=== PATIENT | male | born 1965 | race African-American/Black ===

== ENCOUNTER 2020-05-16 16:46 | Emergency (ER) | payer OTHER ==
[~2020-05-16] VITALS: Ht 180.3 cm; Wt 115.9 kg
[2020-05-16 16:50] VITALS: BP 138/74
== END 2020-05-16 19:45 | disposition left against medical advice (07) ==
LOC: EMS 16:46
DX: R51.9 Headache, unspecified (principal); Z53.21 Procedure and treatment not carried out due to patient leaving prior to being seen by health care provider

== ENCOUNTER 2020-07-22 17:58 | Inpatient (IN) | payer OTHER ==
[~2020-07-22] VITALS: Ht 180.3 cm; Wt 102.2 kg
[2020-07-22] MEDS ORDERED: 0.9% SODIUM CHLORIDE 10 ML SYRINGE IVP PRN ×2 (19:00→21:30)
[2020-07-22 20:23] LABS: BASOPHILS % (AUTO) 0.9 % (0.0-2.0); EOSINOPHILS % (AUTO) 1.1 % (1.0-6.0); HEMATOCRIT 41.7 % (41-53); HEMOGLOBIN 13.9 g/dL (13.5-17.5); LYMPHOCYTES # (AUTO) 1.7 K/uL (1.0-4.8); LYMPHOCYTES % (AUTO) 17.6 % (22.0-44.0); MEAN CORPUSCULAR HEMOGLOBIN 29.6 pg (26.0-34.0); MEAN CORPUSCULAR HGB CONC 33.4 G/dL (31.0-37.0); MEAN CORPUSCULAR VOLUME 89 fL (80-100); MONOCYTES # (AUTO) 0.9 K/uL (0.1-1.0); MONOCYTES % (AUTO) 9.7 % (2.0-9.0); NEUTROPHILS # (AUTO) 6.8 K/uL (1.8-7.7); NEUTROPHILS % (AUTO) 70.7 % (40.0-70.0); PLATELET COUNT (AUTO) 245 K/uL (150-450); RED CELL DISTRIBUTION WIDTH 15.5 % (11.5-14.5)
[2020-07-22 20:32] LABS: ANION GAP 9 mmol/L (8-16); CALCIUM, TOTAL 8.8 mg/dL (8.8-10.5); CARBON DIOXIDE 27 mmol/L (22-29); CHLORIDE 102 mmol/L (98-107); CREATININE 1.13 mg/dL (0.60-1.30); GLOMERULAR FILTR. RATE CALC > 60 mL/min (>60); GLUCOSE,RANDOM 97 mg/dL (70-110); POTASSIUM 3.3 mmol/L (3.5-5.1); SODIUM SERUM 138 mmol/L (136-145); UREA NITROGEN, BLOOD 9 mg/dL (7-18)
[2020-07-22 20:39] LABS: D-DIMER 0.56 mg/L FEU (0.00-0.50); INR 1.1 (0.9-1.1); PROTHROMBIN TIME 11.4 SEC (9.4-11.6)
[2020-07-22 20:42] LABS: B-TYPE NATRIURETIC PEPTIDE 469 pg/mL (0-100)
[2020-07-22 20:57] LABS: ALANINE AMINOTRANSFERASE 16 U/L (12-78); ALKALINE PHOSPHATASE 140 U/L (46-116); ASPARTATE AMINOTRANSFERASE 15 U/L (15-37); BILIRUBIN,TOTAL 0.8 mg/dL (0.1-1.0); C-REACTIVE PROTEIN QUANT 4.82 mg/dL (0.00-0.30); CREATINE KINASE, TOTAL ONLY 151 U/L (39-308); FERRITIN 68 ng/mL (26-388); TOTAL PROTEIN, SERUM 6.9 g/dL (6.4-8.2)
[2020-07-22 21:09] LABS: COVID AG,FIA SOURCE NASOPHARYNGEAL
[2020-07-22] MEDS ORDERED: POTASSIUM CHLORIDE 20 MEQ ER TABLET PO ONE (21:15)
[2020-07-22] MEDS ORDERED: OXYGEN THERAPY IH SCH (21:30)
[2020-07-22] MEDS ORDERED: ACETAMINOPHEN 325 MG TABLET PO PRN (21:30)
[2020-07-22] MEDS ORDERED: NITROGLYCERIN 2% (1 GM=INCH) PACKET TP ONE (21:30)
[2020-07-22] MEDS ORDERED: ONDANSETRON HCL 4 MG/2 ML VIAL IVP PRN ×2 (21:30→22:15)
[2020-07-22] MEDS ORDERED: ASPIRIN 81 MG CHEWABLE TABLET PO ONE (21:30)
[2020-07-22] MEDS ORDERED: FUROSEMIDE 40 MG/4 ML VIAL IVP ONE (21:30)
[2020-07-22 21:31] LABS: PHOSPHORUS 3.1 mg/dL (2.5-4.9)
[2020-07-22 21:52] LABS: APPEARANCE,URINE CLEAR (CLEAR); BILIRUBIN,URINE NEGATIVE (NEGATIVE); GLUCOSE, URINE (UA) NEGATIVE (NEGATIVE); KETONES,URINE NEGATIVE (NEGATIVE); LEUKOCYTE ESTERASE ,URINE NEGATIVE (NEGATIVE); NITRATE,URINE NEGATIVE (NEGATIVE); OCCULT BLOOD,URINE NEGATIVE (NEGATIVE); PH,URINE 6.5 (5.0-8.0); PROTEIN,URINE TRACE (NEGATIVE)
[2020-07-22] MEDS ORDERED: POTASSIUM CHL 10 MEQ/WATER 50 ML IV PRN (22:15)
[2020-07-22] MEDS ORDERED: MAGNESIUM SULFATE 4 GM/WATER 100 ML IV PRN (22:15)
[2020-07-22] MEDS ORDERED: MAGNESIUM SULFATE 2 GM/WATER 50 ML IV PRN (22:15)
[2020-07-22] MEDS ORDERED: NITROGLYCERIN 0.4 MG SUBLINGUAL TABLET #25 SL PRN (22:15)
[2020-07-22] MEDS ORDERED: MAGNESIUM OXIDE 400 MG TABLET PO PRN (22:15)
[2020-07-22] MEDS ORDERED: ATORVASTATIN CALCIUM 40 MG TABLET PO ONE (22:15)
[2020-07-22] MEDS ORDERED: IOVERSOL 350 MG/ML 100 ML VIAL ONE (23:01)
[2020-07-22] MEDS ORDERED: SODIUM CHLORIDE 0.9% 100 ML ONE (23:01)
[2020-07-23 03:30] VITALS: BP 142/98
[2020-07-23] MEDS: ACETAMINOPHEN 325 MG TABLET PO PRN (03:35)
[2020-07-23] MEDS ORDERED: INFLUENZA VIRUS VACCINE QVS 2020-21 (6MO+)/PF 60 MCG/0.5 ML SYRINGE IM ONE (05:45)
[2020-07-23] MEDS ORDERED: ENOXAPARIN SODIUM 60 MG/0.6 ML PF SYRINGE SQ ONE (07:00)
[2020-07-23 07:33] LABS: BASOPHILS % (AUTO) 0.9 % (0.0-2.0); EOSINOPHILS % (AUTO) 1.1 % (1.0-6.0); HEMATOCRIT 41.6 % (41-53); LYMPHOCYTES # (AUTO) 1.9 K/uL (1.0-4.8); LYMPHOCYTES % (AUTO) 20.9 % (22.0-44.0); MEAN CORPUSCULAR HEMOGLOBIN 30.1 pg (26.0-34.0); MEAN CORPUSCULAR HGB CONC 33.6 G/dL (31.0-37.0); MEAN CORPUSCULAR VOLUME 90 fL (80-100); MONOCYTES # (AUTO) 1.1 K/uL (0.1-1.0); MONOCYTES % (AUTO) 11.6 % (2.0-9.0); NEUTROPHILS % (AUTO) 65.5 % (40.0-70.0); PLATELET COUNT (AUTO) 241 K/uL (150-450); RED BLOOD CELL COUNT(AUTO) 4.65 MIL/uL (4.50-5.90); RED CELL DISTRIBUTION WIDTH 15.4 % (11.5-14.5)
[2020-07-23 08:18] VITALS: BP 145/91
[2020-07-23 08:26] LABS: ALANINE AMINOTRANSFERASE 16 U/L (12-78); ALKALINE PHOSPHATASE 130 U/L (46-116); ANION GAP 9 mmol/L (8-16); ASPARTATE AMINOTRANSFERASE 12 U/L (15-37); CALCIUM, TOTAL 8.6 mg/dL (8.8-10.5); CARBON DIOXIDE 28 mmol/L (22-29); CHLORIDE 103 mmol/L (98-107); CREATININE 1.21 mg/dL (0.60-1.30); GLOMERULAR FILTR. RATE CALC > 60 mL/min (>60); GLUCOSE,RANDOM 82 mg/dL (70-110); POTASSIUM 3.5 mmol/L (3.5-5.1); SODIUM SERUM 140 mmol/L (136-145); TOTAL PROTEIN, SERUM 6.7 g/dL (6.4-8.2); UREA NITROGEN, BLOOD 11 mg/dL (7-18)
[2020-07-23] MEDS ORDERED: ENOXAPARIN SODIUM 60 MG/0.6 ML PF SYRINGE SQ SCH (09:00)
[2020-07-23] MEDS ORDERED: CARVEDILOL 3.125 MG TABLET PO SCH (09:00)
[2020-07-23] MEDS: DOCUSATE SODIUM 100 MG CAPSULE PO SCH ×2 (09:49→22:14)
[2020-07-23] MEDS: ASPIRIN 81 MG CHEWABLE TABLET PO SCH (09:49)
[2020-07-23] MEDS: ATORVASTATIN CALCIUM 40 MG TABLET PO SCH (09:49)
[2020-07-23 12:10] VITALS: BP 134/92
[2020-07-23] MEDS: FUROSEMIDE 20 MG TABLET PO SCH ×2 (13:38→22:14)
[2020-07-23] MEDS: LISINOPRIL 20 MG TABLET PO SCH (13:38)
[2020-07-23 16:10] VITALS: BP 126/84
[2020-07-23 20:35] VITALS: BP 131/77
[2020-07-23] MEDS: CARVEDILOL 12.5 MG TABLET PO SCH (22:14)
[2020-07-24 00:20] VITALS: BP 142/83
[2020-07-24 04:15] VITALS: BP 139/84
[2020-07-24 06:54] LABS: ANION GAP 9 mmol/L (8-16); CALCIUM, TOTAL 8.2 mg/dL (8.8-10.5); CARBON DIOXIDE 27 mmol/L (22-29); CHLORIDE 104 mmol/L (98-107); GLOMERULAR FILTR. RATE CALC > 60 mL/min (>60); GLUCOSE,RANDOM 82 mg/dL (70-110); POTASSIUM 3.2 mmol/L (3.5-5.1); SODIUM SERUM 140 mmol/L (136-145); UREA NITROGEN, BLOOD 9 mg/dL (7-18)
[2020-07-24 07:54] VITALS: BP 127/86
[2020-07-24] MEDS: FUROSEMIDE 20 MG TABLET PO SCH ×2 (08:32→20:32)
[2020-07-24] MEDS: ASPIRIN 81 MG CHEWABLE TABLET PO SCH (08:32)
[2020-07-24] MEDS: DOCUSATE SODIUM 100 MG CAPSULE PO SCH ×2 (08:32→19:51)
[2020-07-24] MEDS: CARVEDILOL 12.5 MG TABLET PO SCH ×2 (08:33→20:32)
[2020-07-24] MEDS: LISINOPRIL 20 MG TABLET PO SCH (08:33)
[2020-07-24] MEDS: ATORVASTATIN CALCIUM 40 MG TABLET PO SCH (08:33)
[2020-07-24] MEDS: ACETAMINOPHEN 325 MG TABLET PO PRN (10:10)
[2020-07-24] MEDS: POTASSIUM CHLORIDE 20 MEQ ER TABLET PO PRN (11:04)
[2020-07-24 11:32] LABS: AMPHET/METH SCREEN,URINE NEGATIVE (NEGATIVE); BARBITURATE SCREEN, URINE NEGATIVE (NEGATIVE); BENZODIAZEPINES SCREEN,URINE NEGATIVE (NEGATIVE); CANNABINOID SCREEN,URINE NEGATIVE (NEGATIVE); COCAINE SCREEN,URINE POSITIVE (NEGATIVE); METHADONE SCREEN, URINE NEGATIVE (NEGATIVE); OPIATE SCREEN,URINE NEGATIVE (NEGATIVE)
[2020-07-24 11:34] VITALS: BP 127/89
[2020-07-24 11:40] LABS: PHENCYCLIDINE SCREEN,URINE NEGATIVE (NEGATIVE)
[2020-07-24 16:06] VITALS: BP 143/71
[2020-07-24 20:45] VITALS: BP 125/77
[2020-07-25 00:45] VITALS: BP 150/97
[2020-07-25] MEDS ORDERED: SODIUM CHLORIDE 0.9% 1,000 ML IV ONE (03:45)
[2020-07-25 04:45] VITALS: BP 149/81
[2020-07-25 07:20] VITALS: BP 145/77
[2020-07-25] MEDS: LISINOPRIL 20 MG TABLET PO SCH (08:30)
[2020-07-25] MEDS: ASPIRIN 81 MG CHEWABLE TABLET PO SCH (08:30)
[2020-07-25] MEDS: ATORVASTATIN CALCIUM 40 MG TABLET PO SCH (08:30)
[2020-07-25] MEDS: CARVEDILOL 12.5 MG TABLET PO SCH ×2 (08:30→22:34)
[2020-07-25] MEDS: DOCUSATE SODIUM 100 MG CAPSULE PO SCH ×2 (08:30→22:34)
[2020-07-25] MEDS: FUROSEMIDE 20 MG TABLET PO SCH ×2 (08:30→22:33)
[2020-07-25] MEDS ORDERED: DIAZEPAM 10 MG TABLET PO ONE (11:15)
[2020-07-25] MEDS ORDERED: DiphenhydrAMINE HCL 50 MG CAPSULE PO ONE (11:15)
[2020-07-25 12:55] VITALS: BP 140/80
[2020-07-25 16:50] VITALS: BP 136/82
[2020-07-25 20:37] VITALS: BP 147/70
[2020-07-25] MEDS ORDERED: DIAZEPAM 5 MG TABLET PO ONE (22:30)
[2020-07-25] MEDS: HYDROCODONE/ACETAMINOPHEN 5-325 MG TABLET PO PRN (22:33)
[2020-07-26] VITALS (16 sets, daily range): BP systolic 117–173; BP diastolic 48–95
[2020-07-26] MEDS ORDERED: SODIUM BICARBONATE 50 MEQ/50 ML VIAL ONE (08:50)
[2020-07-26] MEDS ORDERED: HEPARIN SODIUM 1000 UNITS/NS 1,000 ML ONE (08:50)
[2020-07-26] MEDS ORDERED: LIDOCAINE/PF 1% 30 ML VIAL ONE (08:50)
[2020-07-26] MEDS ORDERED: IOHEXOL 300 MG/ML 150 ML VIAL ONE (08:50)
[2020-07-26] MEDS ORDERED: DiphenhydrAMINE HCL 50 MG CAPSULE PO ONE (09:00)
[2020-07-26] MEDS: DOCUSATE SODIUM 100 MG CAPSULE PO SCH ×2 (09:00→20:00)
[2020-07-26] MEDS: ASPIRIN 81 MG CHEWABLE TABLET PO SCH (09:00)
[2020-07-26] MEDS ORDERED: FentaNYL CITRATE-PF 100 MCG/2 ML VIAL ONE (09:17)
[2020-07-26] MEDS ORDERED: MIDAZOLAM HCL 2 MG/2 ML VIAL ONE ×2 (09:17→09:34)
[2020-07-26] MEDS ORDERED: NITROGLYCERIN 50 MG/D5% WATER 0 ML ONE (09:34)
[2020-07-26] MEDS ORDERED: LIDOCAINE 1% 30 ML/SOD BICARB 8.4% 4 ML SQ ONE (09:45)
[2020-07-26] MEDS ORDERED: MIDAZOLAM HCL 2 MG/2 ML VIAL IVP ONE ×2 (09:45→10:00)
[2020-07-26] MEDS ORDERED: HEPARIN SODIUM 1000 UNITS/NS 1,000 ML IARTER ONE (09:45)
[2020-07-26] MEDS ORDERED: IOHEXOL 300 MG/ML 150 ML VIAL IARTER ONE (09:45)
[2020-07-26] MEDS ORDERED: FentaNYL CITRATE-PF 100 MCG/2 ML VIAL IVP ONE ×2 (09:45→10:00)
[2020-07-26] MEDS ORDERED: IOHEXOL 300 MG/ML 100 ML VIAL ONE (09:52)
[2020-07-26] MEDS: ISOSORBIDE MONONITRATE 30 MG ER TABLET PO SCH (11:56)
[2020-07-26] MEDS: CARVEDILOL 12.5 MG TABLET PO SCH ×2 (11:56→20:14)
[2020-07-26] MEDS: ATORVASTATIN CALCIUM 40 MG TABLET PO SCH (11:56)
[2020-07-26] MEDS: FUROSEMIDE 20 MG TABLET PO SCH ×2 (11:57→20:14)
[2020-07-26] MEDS: LISINOPRIL 20 MG TABLET PO SCH (11:57)
[2020-07-26 12:40] LABS: CHOL/HDL RATIO 4.8 (4.2-7.3)
[2020-07-26] MEDS: HYDROCODONE/ACETAMINOPHEN 5-325 MG TABLET PO PRN (20:14)
[2020-07-27 00:10] VITALS: BP 145/63
[2020-07-27 05:12] VITALS: BP 152/86
[2020-07-27 07:12] LABS: BASOPHILS % (AUTO) 1.2 % (0.0-2.0); EOSINOPHILS % (AUTO) 2.2 % (1.0-6.0); HEMATOCRIT 40.4 % (41-53); HEMOGLOBIN 13.3 g/dL (13.5-17.5); LYMPHOCYTES # (AUTO) 1.9 K/uL (1.0-4.8); LYMPHOCYTES % (AUTO) 27.5 % (22.0-44.0); MEAN CORPUSCULAR HEMOGLOBIN 29.8 pg (26.0-34.0); MEAN CORPUSCULAR VOLUME 90 fL (80-100); MONOCYTES # (AUTO) 0.6 K/uL (0.1-1.0); MONOCYTES % (AUTO) 8.6 % (2.0-9.0); NEUTROPHILS # (AUTO) 4.3 K/uL (1.8-7.7); NEUTROPHILS % (AUTO) 60.5 % (40.0-70.0); PLATELET COUNT (AUTO) 282 K/uL (150-450); RED BLOOD CELL COUNT(AUTO) 4.48 MIL/uL (4.50-5.90); RED CELL DISTRIBUTION WIDTH 14.8 % (11.5-14.5)
[2020-07-27 07:28] LABS: ANION GAP 6 mmol/L (8-16); CALCIUM, TOTAL 8.6 mg/dL (8.8-10.5); CARBON DIOXIDE 30 mmol/L (22-29); CHLORIDE 100 mmol/L (98-107); CREATININE 1.32 mg/dL (0.60-1.30); GLOMERULAR FILTR. RATE CALC > 60 mL/min (>60); GLUCOSE,RANDOM 86 mg/dL (70-110); POTASSIUM 3.4 mmol/L (3.5-5.1); SODIUM SERUM 136 mmol/L (136-145); UREA NITROGEN, BLOOD 15 mg/dL (7-18)
[2020-07-27 07:47] VITALS: BP 130/64
[2020-07-27] MEDS: DOCUSATE SODIUM 100 MG CAPSULE PO SCH ×2 (09:59→21:20)
[2020-07-27] MEDS: CARVEDILOL 12.5 MG TABLET PO SCH ×2 (09:59→21:20)
[2020-07-27] MEDS: ASPIRIN 81 MG CHEWABLE TABLET PO SCH (09:59)
[2020-07-27] MEDS: FUROSEMIDE 20 MG TABLET PO SCH ×2 (10:00→21:20)
[2020-07-27] MEDS: ATORVASTATIN CALCIUM 40 MG TABLET PO SCH (10:00)
[2020-07-27] MEDS: ISOSORBIDE MONONITRATE 30 MG ER TABLET PO SCH (10:00)
[2020-07-27] MEDS: LISINOPRIL 20 MG TABLET PO SCH (10:01)
[2020-07-27 12:17] VITALS: BP 120/59
[2020-07-27 16:38] VITALS: BP 136/68
[2020-07-27 20:51] VITALS: BP 149/82
[2020-07-28 00:25] VITALS: BP 143/79
[2020-07-28] MEDS: POTASSIUM CHLORIDE 20 MEQ ER TABLET PO PRN (04:58)
[2020-07-28] MEDS: HYDROCODONE/ACETAMINOPHEN 5-325 MG TABLET PO PRN ×3 (05:02→17:41)
[2020-07-28 05:03] VITALS: BP 136/84
[2020-07-28] MEDS: DOCUSATE SODIUM 100 MG CAPSULE PO SCH ×2 (09:37→21:16)
[2020-07-28] MEDS: CARVEDILOL 12.5 MG TABLET PO SCH ×2 (09:37→21:16)
[2020-07-28] MEDS: ASPIRIN 81 MG CHEWABLE TABLET PO SCH (09:37)
[2020-07-28] MEDS: ISOSORBIDE MONONITRATE 30 MG ER TABLET PO SCH (09:37)
[2020-07-28] MEDS: ATORVASTATIN CALCIUM 40 MG TABLET PO SCH (09:38)
[2020-07-28] MEDS: LISINOPRIL 20 MG TABLET PO SCH (09:38)
[2020-07-28] MEDS: FUROSEMIDE 20 MG TABLET PO SCH ×2 (09:38→21:16)
[2020-07-28 12:27] VITALS: BP 125/71
[2020-07-28 16:30] VITALS: BP 127/65
[2020-07-28 20:50] VITALS: BP 133/75
[2020-07-28 23:36] VITALS: BP 140/66
[2020-07-29 04:56] VITALS: BP 131/64
[2020-07-29] MEDS: HYDROCODONE/ACETAMINOPHEN 5-325 MG TABLET PO PRN (05:09)
[2020-07-29 08:21] VITALS: BP 141/83
[2020-07-29] MEDS: DOCUSATE SODIUM 100 MG CAPSULE PO SCH ×2 (09:00→09:33)
[2020-07-29] MEDS: CARVEDILOL 12.5 MG TABLET PO SCH (09:33)
[2020-07-29] MEDS: ATORVASTATIN CALCIUM 40 MG TABLET PO SCH (09:33)
[2020-07-29] MEDS: LISINOPRIL 20 MG TABLET PO SCH (09:33)
[2020-07-29] MEDS: FUROSEMIDE 20 MG TABLET PO SCH (09:33)
[2020-07-29] MEDS: ASPIRIN 81 MG CHEWABLE TABLET PO SCH (09:33)
[2020-07-29] MEDS: ISOSORBIDE MONONITRATE 30 MG ER TABLET PO SCH (09:33)
[2020-07-29] MEDS: ACETAMINOPHEN 325 MG TABLET PO PRN (10:09)
[2020-07-29 12:13] VITALS: BP 113/54
[2020-07-29 16:58] LABS: COVID AG,FIA SOURCE NASAL SWAB
== END 2020-07-29 16:55 | disposition left against medical advice (07) | DRG 190 ==
LOC: EMS 17:58 → 5S 07-23 00:40
PROVIDERS: ADMIT Internal Medicine; ATTEND Internal Medicine
PROC: 4A023N8 Measurement of Cardiac Sampling and Pressure, Bilateral, Percutaneous Approach (ICD-10-PCS; principal; 2020-07-26)
PROC: B2111ZZ Fluoroscopy of Multiple Coronary Arteries using Low Osmolar Contrast (ICD-10-PCS; 2020-07-26)
PROC: B2151ZZ Fluoroscopy of Left Heart using Low Osmolar Contrast (ICD-10-PCS; 2020-07-26)
DX: I21.4 Non-ST elevation (NSTEMI) myocardial infarction (principal); I11.0 Hypertensive heart disease with heart failure; I50.21 Acute systolic (congestive) heart failure; E87.6 Hypokalemia; Z91.19 Patient's noncompliance with other medical treatment and regimen; E11.9 Type 2 diabetes mellitus without complications; E66.9 Obesity, unspecified; Z68.31 Body mass index [BMI] 31.0-31.9, adult; I42.9 Cardiomyopathy, unspecified; E78.5 Hyperlipidemia, unspecified; Z20.828 Contact with and (suspected) exposure to other viral communicable diseases; F17.210 Nicotine dependence, cigarettes, uncomplicated; I25.119 Atherosclerotic heart disease of native coronary artery with unspecified angina pectoris; F14.10 Cocaine abuse, uncomplicated; F15.10 Other stimulant abuse, uncomplicated; Z53.29 Procedure and treatment not carried out because of patient's decision for other reasons; I27.20 Pulmonary hypertension, unspecified
CPT/HCPCS: 71275; 76700; 80307; 82728; 83605; 83735; 84100; 84132; 85379; 86140; 87040; 87426; 93005; 93306; 93460; 93880; 93970; 99291; G0378; J1644; J1650; J1940; J2250; J3010; J3490; J7030; J7050; Q9967; 36415-L1; 36415-TC; 71045-TC; 80061-TC; 81003-TC

== ENCOUNTER 2022-06-11 13:25 | Inpatient (IN) | payer MEDICAID, OTHER ==
[~2022-06-11] VITALS: Ht 175.3 cm; Wt 103.9 kg
[2022-06-11 14:16] LABS: BASOPHILS % (AUTO) 2.1 % (0.0-2.0); EOSINOPHILS % (AUTO) 4.2 % (1.0-6.0); HEMATOCRIT 44.4 % (41-53); HEMOGLOBIN 14.5 g/dL (13.5-17.5); LYMPHOCYTES # (AUTO) 1.5 K/uL (1.0-4.8); LYMPHOCYTES % (AUTO) 35.4 % (22.0-44.0); MEAN CORPUSCULAR HEMOGLOBIN 25.2 pg (26.0-34.0); MEAN CORPUSCULAR HGB CONC 32.7 G/dL (31.0-37.0); MEAN CORPUSCULAR VOLUME 77 fL (80-100); MONOCYTES # (AUTO) 0.5 K/uL (0.1-1.0); MONOCYTES % (AUTO) 12.8 % (2.0-9.0); NEUTROPHILS # (AUTO) 1.9 K/uL (1.8-7.7); NEUTROPHILS % (AUTO) 45.5 % (40.0-70.0); PLATELET COUNT (AUTO) 241 K/uL (150-450); RED BLOOD CELL COUNT(AUTO) 5.77 MIL/uL (4.50-5.90); RED CELL DISTRIBUTION WIDTH 21.9 % (11.5-14.5)
[2022-06-11 14:45] LABS: ANION GAP 11 mmol/L (8-16); CALCIUM, TOTAL 9.5 mg/dL (8.8-10.5); CARBON DIOXIDE 26 mmol/L (22-29); CHLORIDE 102 mmol/L (98-107); CREATININE 1.21 mg/dL (0.60-1.30); GLOMERULAR FILTR. RATE CALC > 60 mL/min (>60); GLUCOSE,RANDOM 85 mg/dL (70-110); POTASSIUM 3.8 mmol/L (3.5-5.1); SODIUM SERUM 139 mmol/L (136-145); UREA NITROGEN, BLOOD 12 mg/dL (7-18)
[2022-06-11 14:58] LABS: ALANINE AMINOTRANSFERASE 42 U/L (12-78); ALBUMIN 3.7 g/dL (3.4-5.0); ALKALINE PHOSPHATASE 178 U/L (46-116); ASPARTATE AMINOTRANSFERASE 36 U/L (15-37); BILIRUBIN,TOTAL 0.5 mg/dL (0.1-1.0); TOTAL PROTEIN, SERUM 8.4 g/dL (6.4-8.2)
[2022-06-11 15:21] LABS: AMPHET/METH SCREEN,URINE NEGATIVE (NEGATIVE); BARBITURATE SCREEN, URINE NEGATIVE (NEGATIVE); BENZODIAZEPINES SCREEN,URINE NEGATIVE (NEGATIVE); CANNABINOID SCREEN,URINE NEGATIVE (NEGATIVE); COCAINE SCREEN,URINE NEGATIVE (NEGATIVE); METHADONE SCREEN, URINE NEGATIVE (NEGATIVE); OPIATE SCREEN,URINE NEGATIVE (NEGATIVE)
[2022-06-11 15:40] LABS: PHENCYCLIDINE SCREEN,URINE NEGATIVE (NEGATIVE)
[2022-06-11] MEDS ORDERED: LORazepam 2 MG TABLET PO ONE (20:15)
[2022-06-11] MEDS ORDERED: ACETAMINOPHEN 500 MG TABLET PO ONE (20:15)
[2022-06-11] MEDS ORDERED: HALOPERIDOL 5 MG TABLET PO PRN (20:45)
[2022-06-11 21:09] LABS: COVID AG,FIA SOURCE NASAL SWAB
[2022-06-12 00:50] VITALS: BP 154/94
[2022-06-12] MEDS ORDERED: PNEUMOCOCCAL VACCINE POLYVALENT 0.5 ML VIAL [PPSV23] IM. ONE (02:15)
[2022-06-12 08:20] VITALS: BP 143/75
[2022-06-12] MEDS ORDERED: ALBUTEROL SULFATE HFA 90 MCG/PUFF 8 GM INHALER IH PRN (11:45)
[2022-06-12] MEDS ORDERED: IBUPROFEN 600 MG TABLET PO PRN (11:45)
[2022-06-12] MEDS ORDERED: LOPERAMIDE HCL 2 MG CAPSULE PO PRN (11:45)
[2022-06-12] MEDS ORDERED: MAGNESIUM HYDROXIDE SUSPENSION 30 ML UDCUP PO PRN (11:45)
[2022-06-12] MEDS ORDERED: ONDANSETRON HCL 4 MG TABLET PO PRN (11:45)
[2022-06-12] MEDS ORDERED: CloNIDine HCL 0.1 MG TABLET PO PRN (11:45)
[2022-06-12] MEDS ORDERED: MAG HYDROX/AL HYDROX/SIMETH ES 30 ML SUSPENSION UDCUP PO PRN (11:45)
[2022-06-12] MEDS ORDERED: BACITRACIN 28 GM OINTMENT TP PRN (11:45)
[2022-06-12] MEDS ORDERED: PETROLATUM,WHITE 28 GM JELLY TP PRN (11:45)
[2022-06-12] MEDS ORDERED: DOCUSATE SODIUM 100 MG CAPSULE PO PRN (11:45)
[2022-06-12] MEDS ORDERED: OMEPRAZOLE 20 MG CAPSULE PO PRN (11:45)
[2022-06-12] MEDS ORDERED: BENZOCAINE/MENTHOL LOZENGE PO PRN (11:45)
[2022-06-12] MEDS: THIAMINE 100 MG TABLET PO SCH (12:22)
[2022-06-12] MEDS: FOLIC ACID 1 MG TABLET PO SCH (12:22)
[2022-06-12] MEDS: CARVEDILOL 3.125 MG TABLET PO SCH (18:33)
[2022-06-12 20:19] VITALS: BP 131/77
[2022-06-12] MEDS: ATORVASTATIN CALCIUM 40 MG TABLET PO SCH (20:20)
[2022-06-12] MEDS: LATANOPROST 0.005% 2.5 ML OPHTHALMIC SOLUTION OU SCH (20:20)
[2022-06-12] MEDS: ZOLPIDEM TARTRATE 10 MG TABLET PO PRN (20:20)
[2022-06-13 06:58] VITALS: BP 140/90
[2022-06-13] MEDS: ASPIRIN 81 MG CHEWABLE TABLET PO SCH (06:58)
[2022-06-13] MEDS: THIAMINE 100 MG TABLET PO SCH (08:36)
[2022-06-13] MEDS: PANTOPRAZOLE SODIUM 40 MG DR TABLET PO SCH (08:36)
[2022-06-13] MEDS: CARVEDILOL 3.125 MG TABLET PO SCH ×2 (08:36→16:42)
[2022-06-13] MEDS: FOLIC ACID 1 MG TABLET PO SCH (08:36)
[2022-06-13] MEDS: TIMOLOL MALEATE 0.5% 5 ML OPHTHALMIC SOLUTION OU SCH ×2 (08:38→16:43)
[2022-06-13 08:54] VITALS: BP 140/77
[2022-06-13] MEDS: SACUBITRIL/VALSARTAN 24-26 MG TABLET PO SCH ×2 (09:00→17:00)
[2022-06-13] MEDS: ACETAMINOPHEN 325 MG TABLET PO PRN (16:42)
[2022-06-13] MEDS: ATORVASTATIN CALCIUM 40 MG TABLET PO SCH (20:20)
[2022-06-13] MEDS: LATANOPROST 0.005% 2.5 ML OPHTHALMIC SOLUTION OU SCH (20:20)
[2022-06-13] MEDS: ZOLPIDEM TARTRATE 10 MG TABLET PO PRN (20:21)
[2022-06-13 20:22] VITALS: BP 140/69
[2022-06-14] MEDS: ASPIRIN 81 MG CHEWABLE TABLET PO SCH (06:30)
[2022-06-14] MEDS: THIAMINE 100 MG TABLET PO SCH (08:32)
[2022-06-14] MEDS: PANTOPRAZOLE SODIUM 40 MG DR TABLET PO SCH (08:32)
[2022-06-14] MEDS: TIMOLOL MALEATE 0.5% 5 ML OPHTHALMIC SOLUTION OU SCH ×2 (08:32→16:45)
[2022-06-14] MEDS: FOLIC ACID 1 MG TABLET PO SCH (08:32)
[2022-06-14] MEDS: SACUBITRIL/VALSARTAN 24-26 MG TABLET PO SCH ×2 (08:32→16:45)
[2022-06-14] MEDS: DULoxetine HCL 60 MG CAPSULE PO SCH (08:32)
[2022-06-14] MEDS: CARVEDILOL 3.125 MG TABLET PO SCH ×2 (08:32→16:45)
[2022-06-14 08:33] VITALS: BP 141/83
[2022-06-14 16:37] VITALS: BP 130/82
[2022-06-14] MEDS: ACETAMINOPHEN 325 MG TABLET PO PRN (16:50)
[2022-06-14 20:34] VITALS: BP 122/77
[2022-06-14] MEDS: ZOLPIDEM TARTRATE 10 MG TABLET PO PRN (20:34)
[2022-06-14] MEDS: ATORVASTATIN CALCIUM 40 MG TABLET PO SCH (20:34)
[2022-06-14] MEDS: QUEtiapine FUMARATE 200 MG TABLET PO SCH (20:34)
[2022-06-14] MEDS: LATANOPROST 0.005% 2.5 ML OPHTHALMIC SOLUTION OU SCH (20:34)
[2022-06-15] MEDS: ASPIRIN 81 MG CHEWABLE TABLET PO SCH (06:44)
[2022-06-15] MEDS: DULoxetine HCL 60 MG CAPSULE PO SCH (08:10)
[2022-06-15] MEDS: PANTOPRAZOLE SODIUM 40 MG DR TABLET PO SCH (08:10)
[2022-06-15] MEDS: SACUBITRIL/VALSARTAN 24-26 MG TABLET PO SCH ×2 (08:10→17:34)
[2022-06-15] MEDS: CARVEDILOL 3.125 MG TABLET PO SCH ×2 (08:11→17:34)
[2022-06-15] MEDS: FOLIC ACID 1 MG TABLET PO SCH (08:11)
[2022-06-15] MEDS: THIAMINE 100 MG TABLET PO SCH (08:11)
[2022-06-15] MEDS: TIMOLOL MALEATE 0.5% 5 ML OPHTHALMIC SOLUTION OU SCH ×2 (08:11→17:34)
[2022-06-15 08:22] VITALS: BP 102/59
[2022-06-15 20:18] VITALS: BP 137/77
[2022-06-15] MEDS: QUEtiapine FUMARATE 200 MG TABLET PO SCH (20:23)
[2022-06-15] MEDS: ATORVASTATIN CALCIUM 40 MG TABLET PO SCH (20:23)
[2022-06-15] MEDS: ZOLPIDEM TARTRATE 10 MG TABLET PO PRN (20:23)
[2022-06-15] MEDS: LATANOPROST 0.005% 2.5 ML OPHTHALMIC SOLUTION OU SCH (20:24)
[2022-06-16 05:10] VITALS: BP 138/87
[2022-06-16] MEDS: ASPIRIN 81 MG CHEWABLE TABLET PO SCH (06:09)
[2022-06-16 08:22] VITALS: BP 131/73
[2022-06-16] MEDS: CARVEDILOL 3.125 MG TABLET PO SCH ×2 (08:38→17:15)
[2022-06-16] MEDS: THIAMINE 100 MG TABLET PO SCH (08:38)
[2022-06-16] MEDS: FOLIC ACID 1 MG TABLET PO SCH (08:38)
[2022-06-16] MEDS: PANTOPRAZOLE SODIUM 40 MG DR TABLET PO SCH (08:38)
[2022-06-16] MEDS: SACUBITRIL/VALSARTAN 24-26 MG TABLET PO SCH ×2 (08:38→17:15)
[2022-06-16] MEDS: DULoxetine HCL 60 MG CAPSULE PO SCH (08:40)
[2022-06-16] MEDS: TIMOLOL MALEATE 0.5% 5 ML OPHTHALMIC SOLUTION OU SCH ×2 (08:41→17:15)
[2022-06-16 20:12] VITALS: BP 131/71
[2022-06-16] MEDS: ATORVASTATIN CALCIUM 40 MG TABLET PO SCH (20:41)
[2022-06-16] MEDS: QUEtiapine FUMARATE 200 MG TABLET PO SCH (20:41)
[2022-06-16] MEDS: ZOLPIDEM TARTRATE 10 MG TABLET PO PRN (20:41)
[2022-06-16] MEDS: LATANOPROST 0.005% 2.5 ML OPHTHALMIC SOLUTION OU SCH (20:42)
[2022-06-17] MEDS: ASPIRIN 81 MG CHEWABLE TABLET PO SCH (06:06)
[2022-06-17 08:06] LABS: GLUCOMETER DEV NAME(LOC) POC.BV
[2022-06-17] MEDS: SACUBITRIL/VALSARTAN 24-26 MG TABLET PO SCH ×2 (08:18→16:03)
[2022-06-17] MEDS: FOLIC ACID 1 MG TABLET PO SCH (08:18)
[2022-06-17] MEDS: THIAMINE 100 MG TABLET PO SCH (08:18)
[2022-06-17] MEDS: PANTOPRAZOLE SODIUM 40 MG DR TABLET PO SCH (08:18)
[2022-06-17] MEDS: CARVEDILOL 3.125 MG TABLET PO SCH ×2 (08:18→16:03)
[2022-06-17] MEDS: LORazepam 2 MG TABLET PO PRN (08:19)
[2022-06-17] MEDS: DULoxetine HCL 60 MG CAPSULE PO SCH (08:19)
[2022-06-17] MEDS: TIMOLOL MALEATE 0.5% 5 ML OPHTHALMIC SOLUTION OU SCH ×2 (08:21→16:03)
[2022-06-17 08:26] VITALS: BP 104/60
[2022-06-17] MEDS: ACETAMINOPHEN 325 MG TABLET PO PRN (18:40)
[2022-06-17 20:22] VITALS: BP 145/70
[2022-06-17] MEDS: QUEtiapine FUMARATE 200 MG TABLET PO SCH (20:43)
[2022-06-17] MEDS: ATORVASTATIN CALCIUM 40 MG TABLET PO SCH (20:43)
[2022-06-17] MEDS: LATANOPROST 0.005% 2.5 ML OPHTHALMIC SOLUTION OU SCH (21:47)
[2022-06-18] MEDS: ASPIRIN 81 MG CHEWABLE TABLET PO SCH (06:59)
[2022-06-18 08:10] VITALS: BP 129/87
[2022-06-18] MEDS: FOLIC ACID 1 MG TABLET PO SCH (08:19)
[2022-06-18] MEDS: THIAMINE 100 MG TABLET PO SCH (08:19)
[2022-06-18] MEDS: DULoxetine HCL 60 MG CAPSULE PO SCH (08:19)
[2022-06-18] MEDS: CARVEDILOL 3.125 MG TABLET PO SCH ×2 (08:19→17:04)
[2022-06-18] MEDS: SACUBITRIL/VALSARTAN 24-26 MG TABLET PO SCH ×2 (08:19→17:04)
[2022-06-18] MEDS: PANTOPRAZOLE SODIUM 40 MG DR TABLET PO SCH (08:19)
[2022-06-18] MEDS: TIMOLOL MALEATE 0.5% 5 ML OPHTHALMIC SOLUTION OU SCH ×2 (08:20→17:04)
[2022-06-18] MEDS ORDERED: QUET200T30 PO (12:25)
[2022-06-18] MEDS ORDERED: DULO-113 PO (12:25)
[2022-06-18] MEDS: LORazepam 2 MG TABLET PO PRN (19:54)
[2022-06-18 20:32] VITALS: BP 131/74
[2022-06-18] MEDS: LATANOPROST 0.005% 2.5 ML OPHTHALMIC SOLUTION OU SCH (20:37)
[2022-06-18] MEDS: QUEtiapine FUMARATE 200 MG TABLET PO SCH (20:37)
[2022-06-18] MEDS: ATORVASTATIN CALCIUM 40 MG TABLET PO SCH (20:37)
[2022-06-18] MEDS: ZOLPIDEM TARTRATE 10 MG TABLET PO PRN (20:37)
[2022-06-19] MEDS: ASPIRIN 81 MG CHEWABLE TABLET PO SCH (06:39)
[2022-06-19] MEDS: SACUBITRIL/VALSARTAN 24-26 MG TABLET PO SCH ×2 (09:04→17:05)
[2022-06-19] MEDS: CARVEDILOL 3.125 MG TABLET PO SCH ×2 (09:04→17:05)
[2022-06-19] MEDS: TIMOLOL MALEATE 0.5% 5 ML OPHTHALMIC SOLUTION OU SCH ×2 (09:04→17:05)
[2022-06-19] MEDS: FOLIC ACID 1 MG TABLET PO SCH (09:04)
[2022-06-19] MEDS: DULoxetine HCL 60 MG CAPSULE PO SCH (09:04)
[2022-06-19] MEDS: PANTOPRAZOLE SODIUM 40 MG DR TABLET PO SCH (09:04)
[2022-06-19] MEDS: THIAMINE 100 MG TABLET PO SCH (09:04)
[2022-06-19 09:21] VITALS: BP 124/66
[2022-06-19 20:00] VITALS: BP 112/64
[2022-06-19] MEDS: ATORVASTATIN CALCIUM 40 MG TABLET PO SCH (20:13)
[2022-06-19] MEDS: ZOLPIDEM TARTRATE 10 MG TABLET PO PRN (20:13)
[2022-06-19] MEDS: QUEtiapine FUMARATE 200 MG TABLET PO SCH (20:13)
[2022-06-19] MEDS: LORazepam 2 MG TABLET PO PRN (20:13)
[2022-06-19] MEDS: LATANOPROST 0.005% 2.5 ML OPHTHALMIC SOLUTION OU SCH (20:14)
[2022-06-20] MEDS: ASPIRIN 81 MG CHEWABLE TABLET PO SCH (06:35)
[2022-06-20] MEDS: SACUBITRIL/VALSARTAN 24-26 MG TABLET PO SCH ×2 (08:10→17:17)
[2022-06-20] MEDS: CARVEDILOL 3.125 MG TABLET PO SCH ×2 (08:11→17:17)
[2022-06-20] MEDS: DULoxetine HCL 60 MG CAPSULE PO SCH (08:11)
[2022-06-20] MEDS: FOLIC ACID 1 MG TABLET PO SCH (08:11)
[2022-06-20] MEDS: TIMOLOL MALEATE 0.5% 5 ML OPHTHALMIC SOLUTION OU SCH ×2 (08:11→17:17)
[2022-06-20] MEDS: PANTOPRAZOLE SODIUM 40 MG DR TABLET PO SCH (08:11)
[2022-06-20] MEDS: THIAMINE 100 MG TABLET PO SCH (08:11)
[2022-06-20 08:17] VITALS: BP 131/69
[2022-06-20 20:00] VITALS: BP 138/82
[2022-06-20] MEDS: LORazepam 2 MG TABLET PO PRN (20:15)
[2022-06-20] MEDS: ATORVASTATIN CALCIUM 40 MG TABLET PO SCH (20:15)
[2022-06-20] MEDS: QUEtiapine FUMARATE 200 MG TABLET PO SCH (20:15)
[2022-06-20] MEDS: ZOLPIDEM TARTRATE 10 MG TABLET PO PRN (20:15)
[2022-06-20] MEDS: LATANOPROST 0.005% 2.5 ML OPHTHALMIC SOLUTION OU SCH (20:15)
[2022-06-21] MEDS: ASPIRIN 81 MG CHEWABLE TABLET PO SCH (06:38)
[2022-06-21 08:14] VITALS: BP 124/68
[2022-06-21] MEDS: CARVEDILOL 3.125 MG TABLET PO SCH ×2 (08:33→16:17)
[2022-06-21] MEDS: FOLIC ACID 1 MG TABLET PO SCH (08:33)
[2022-06-21] MEDS: THIAMINE 100 MG TABLET PO SCH (08:33)
[2022-06-21] MEDS: LORazepam 2 MG TABLET PO PRN (08:34)
[2022-06-21] MEDS: DULoxetine HCL 60 MG CAPSULE PO SCH (08:34)
[2022-06-21] MEDS: SACUBITRIL/VALSARTAN 24-26 MG TABLET PO SCH ×2 (08:34→16:17)
[2022-06-21] MEDS: PANTOPRAZOLE SODIUM 40 MG DR TABLET PO SCH (08:35)
[2022-06-21] MEDS: TIMOLOL MALEATE 0.5% 5 ML OPHTHALMIC SOLUTION OU SCH ×2 (08:44→16:18)
[2022-06-21 16:15] VITALS: BP 118/72
[2022-06-21] MEDS: QUEtiapine FUMARATE 200 MG TABLET PO SCH (20:07)
[2022-06-21] MEDS: ATORVASTATIN CALCIUM 40 MG TABLET PO SCH (20:08)
[2022-06-21] MEDS: LATANOPROST 0.005% 2.5 ML OPHTHALMIC SOLUTION OU SCH (20:09)
[2022-06-21 23:21] VITALS: BP 116/73
[2022-06-22] MEDS: ASPIRIN 81 MG CHEWABLE TABLET PO SCH (06:24)
[2022-06-22 08:33] VITALS: BP 142/79
[2022-06-22] MEDS: SACUBITRIL/VALSARTAN 24-26 MG TABLET PO SCH ×2 (08:54→16:30)
[2022-06-22] MEDS: THIAMINE 100 MG TABLET PO SCH (08:54)
[2022-06-22] MEDS: CARVEDILOL 3.125 MG TABLET PO SCH ×2 (08:54→16:30)
[2022-06-22] MEDS: FOLIC ACID 1 MG TABLET PO SCH (08:55)
[2022-06-22] MEDS: PANTOPRAZOLE SODIUM 40 MG DR TABLET PO SCH (08:55)
[2022-06-22] MEDS: DULoxetine HCL 60 MG CAPSULE PO SCH (08:56)
[2022-06-22] MEDS: TIMOLOL MALEATE 0.5% 5 ML OPHTHALMIC SOLUTION OU SCH ×2 (08:56→16:31)
[2022-06-22] MEDS: ATORVASTATIN CALCIUM 40 MG TABLET PO SCH (20:46)
[2022-06-22] MEDS: QUEtiapine FUMARATE 200 MG TABLET PO SCH (20:46)
[2022-06-22] MEDS: LATANOPROST 0.005% 2.5 ML OPHTHALMIC SOLUTION OU SCH (20:46)
[2022-06-22 20:57] VITALS: BP 121/62
[2022-06-23] MEDS: ASPIRIN 81 MG CHEWABLE TABLET PO SCH (06:11)
[2022-06-23 08:33] VITALS: BP 100/60
[2022-06-23] MEDS: CARVEDILOL 3.125 MG TABLET PO SCH ×2 (09:00→16:16)
[2022-06-23] MEDS: FOLIC ACID 1 MG TABLET PO SCH (09:00)
[2022-06-23] MEDS: DULoxetine HCL 60 MG CAPSULE PO SCH (09:00)
[2022-06-23] MEDS: PANTOPRAZOLE SODIUM 40 MG DR TABLET PO SCH (09:00)
[2022-06-23] MEDS: THIAMINE 100 MG TABLET PO SCH (09:00)
[2022-06-23] MEDS: SACUBITRIL/VALSARTAN 24-26 MG TABLET PO SCH ×2 (09:01→16:16)
[2022-06-23] MEDS: TIMOLOL MALEATE 0.5% 5 ML OPHTHALMIC SOLUTION OU SCH ×2 (09:01→16:17)
[2022-06-23 20:20] VITALS: BP 113/71
[2022-06-23] MEDS: LATANOPROST 0.005% 2.5 ML OPHTHALMIC SOLUTION OU SCH (20:31)
[2022-06-23] MEDS: ATORVASTATIN CALCIUM 40 MG TABLET PO SCH (20:31)
[2022-06-23] MEDS: QUEtiapine FUMARATE 200 MG TABLET PO SCH (20:31)
[2022-06-24] MEDS: ASPIRIN 81 MG CHEWABLE TABLET PO SCH (06:53)
[2022-06-24] MEDS: SACUBITRIL/VALSARTAN 24-26 MG TABLET PO SCH (08:15)
[2022-06-24] MEDS: PANTOPRAZOLE SODIUM 40 MG DR TABLET PO SCH (08:16)
[2022-06-24] MEDS: CARVEDILOL 3.125 MG TABLET PO SCH (08:16)
[2022-06-24] MEDS: FOLIC ACID 1 MG TABLET PO SCH (08:16)
[2022-06-24] MEDS: DULoxetine HCL 60 MG CAPSULE PO SCH (08:16)
[2022-06-24] MEDS: THIAMINE 100 MG TABLET PO SCH (08:16)
[2022-06-24 08:46] VITALS: BP 124/74
[2022-06-24] MEDS: TIMOLOL MALEATE 0.5% 5 ML OPHTHALMIC SOLUTION OU SCH (09:10)
[2022-06-24] MEDS ORDERED: SACU1TAB PO (10:49)
[2022-06-24] MEDS ORDERED: CARV3 PO (10:49)
[2022-06-24] MEDS ORDERED: PANT-31 PO (10:50)
[2022-06-24] MEDS ORDERED: ATOR40TA28 PO (10:51)
[2022-06-24] MEDS ORDERED: ASPI-1450 PO (10:52)
== END 2022-06-24 11:58 | disposition home or self-care (01) | DRG 750 ==
LOC: EMS 13:35 → B3A 06-12 00:07
PROVIDERS: ADMIT Psychiatry & Neurology Psychiatry; ATTEND Psychiatry & Neurology Psychiatry
DX: F25.9 Schizoaffective disorder, unspecified (principal); R45.851 Suicidal ideations; I50.9 Heart failure, unspecified; I11.0 Hypertensive heart disease with heart failure; K59.00 Constipation, unspecified; F32.9 Major depressive disorder, single episode, unspecified; F41.9 Anxiety disorder, unspecified; G47.00 Insomnia, unspecified; I25.10 Atherosclerotic heart disease of native coronary artery without angina pectoris; F10.10 Alcohol abuse, uncomplicated; F14.10 Cocaine abuse, uncomplicated; F15.10 Other stimulant abuse, uncomplicated; Z20.822 Contact with and (suspected) exposure to COVID-19; Z95.1 Presence of aortocoronary bypass graft; Z87.891 Personal history of nicotine dependence; Z63.4 Disappearance and death of family member; Z79.899 Other long term (current) drug therapy
CPT/HCPCS: 71045; 80053; 80061; 80307; 84484; 85025; 87081; 93005; 99285; G0480; Q9967; 36415-L1; 36415-TC

== ENCOUNTER 2023-08-04 23:10 | Emergency (ER) | payer OTHER ==
[~2023-08-04] VITALS: Ht 180.3 cm; Wt 113.0 kg
[~2023-08-04 23:10] MED LIST: ASPI-1450 PO; ASPI81TA39 PO; ATOR40TA28 PO; CARV3 PO; CARV3.1231 PO; DAPA10TA PO; DULO-113 PO; QUET200T30 PO; SACU1TAB PO; SPIR-37 PO; SPIR25TA6 PO; VALS40TA4 PO
[2023-08-04 23:28] VITALS: TEMP 98.2
[2023-08-04] MEDS ORDERED: TraMADol HCL 50 MG TABLET PO ONE (23:30)
[2023-08-05] MEDS ORDERED: TRAM-559 PO (00:34)
[2023-08-05 01:00] VITALS: BP 160/95; PULSE 70; RESP 18
== END 2023-08-05 02:02 | disposition home or self-care (01) ==
LOC: EMS 23:12
DX: S82.51XA Displaced fracture of medial malleolus of right tibia, initial encounter for closed fracture (principal); E78.00 Pure hypercholesterolemia, unspecified; I10 Essential (primary) hypertension; F17.210 Nicotine dependence, cigarettes, uncomplicated; F14.90 Cocaine use, unspecified, uncomplicated; F15.90 Other stimulant use, unspecified, uncomplicated; Z98.890 Other specified postprocedural states; W10.9XXA Fall (on) (from) unspecified stairs and steps, initial encounter; Y93.89 Activity, other specified; Y92.89 Other specified places as the place of occurrence of the external cause; Y99.8 Other external cause status
CPT/HCPCS: 99283

== ENCOUNTER 2024-06-06 22:34 | Emergency (ER) | payer OTHER ==
[~2024-06-06 22:34] MED LIST changes: -ASPI-1450 PO; -CARV3 PO; -DULO-113 PO; -QUET200T30 PO; -SPIR-37 PO
== END 2024-06-06 23:38 | disposition left against medical advice (07) ==
LOC: EMS 22:34
DX: R07.9 Chest pain, unspecified (principal); Z53.21 Procedure and treatment not carried out due to patient leaving prior to being seen by health care provider

== ENCOUNTER 2024-11-13 18:20 | Emergency (ER) | payer OTHER ==
[~2024-11-13] VITALS: Ht 177.8 cm; Wt 75.0 kg
[2024-11-13 18:20] VITALS: BP 112/95; PULSE 102; RESP 18; TEMP 98; O2SAT 98
== END 2024-11-13 20:18 | disposition left against medical advice (07) ==
LOC: EMS 18:20
DX: R53.1 Weakness (principal); Z53.21 Procedure and treatment not carried out due to patient leaving prior to being seen by health care provider
CPT/HCPCS: 93005

== ENCOUNTER 2025-01-06 00:57 | Emergency (ER) | payer OTHER ==
[~2025-01-06] VITALS: Ht 182.9 cm; Wt 88.6 kg
[2025-01-06 01:11] VITALS: BP 111/69; PULSE 62; RESP 18; TEMP 98.1; O2SAT 99
== END 2025-01-06 01:15 | disposition left against medical advice (07) ==
LOC: EMS 00:58
DX: I10 Essential (primary) hypertension (principal); Z53.21 Procedure and treatment not carried out due to patient leaving prior to being seen by health care provider

== ENCOUNTER 2025-07-21 12:31 | Inpatient (IN) | payer MEDICAID ==
[~2025-07-21] VITALS: Ht 180.3 cm; Wt 88.9 kg
[2025-07-21] MEDS ORDERED: ZOLPIDEM TARTRATE 10 MG TABLET PO PRN (13:30)
[2025-07-21 15:50] LABS: GLUCOMETER DEV NAME(LOC) POC.BV; POC SARS-COV2 AG, FIA NEGATIVE (NEGATIVE)
[2025-07-21 17:48] VITALS: BP 120/88; PULSE 64; RESP 17; TEMP 98.3; O2SAT 98
[2025-07-21] MEDS ORDERED: ACETAMINOPHEN 325 MG TABLET PO PRN (18:00)
[2025-07-21] MEDS ORDERED: DOCUSATE SODIUM 100 MG CAPSULE PO PRN (18:00)
[2025-07-21] MEDS ORDERED: BENZOCAINE/MENTHOL [CEPACOL] LOZENGE PO PRN (18:00)
[2025-07-21] MEDS ORDERED: BACITRACIN 28 GM OINTMENT TP PRN (18:00)
[2025-07-21] MEDS ORDERED: MAG HYDROX/ALUMINUM HYD/SIMETH ES 30 ML SUSPENSION UDCUP PO PRN (18:00)
[2025-07-21] MEDS ORDERED: PETROLATUM,WHITE 28 GM JELLY TP PRN (18:00)
[2025-07-21] MEDS ORDERED: OMEPRAZOLE 20 MG CAPSULE PO PRN (18:00)
[2025-07-21] MEDS ORDERED: LOPERAMIDE HCL 2 MG CAPSULE PO PRN (18:00)
[2025-07-21] MEDS ORDERED: ONDANSETRON 4 MG TABLET PO PRN (18:00)
[2025-07-21] MEDS ORDERED: MAGNESIUM HYDROXIDE SUSPENSION 30 ML UDCUP PO PRN (18:00)
[2025-07-21] MEDS ORDERED: ALBUTEROL SULFATE HFA 90 MCG/PUFF 8 GM INHALER IH PRN (18:00)
[2025-07-21 19:48] VITALS: RESP 18
[2025-07-21] MEDS: IBUPROFEN 600 MG TABLET PO PRN (19:48)
[2025-07-21 20:00] VITALS: BP 128/83; PULSE 74; RESP 16; TEMP 98.4; O2SAT 98
[2025-07-21 20:48] VITALS: RESP 16
[2025-07-22] MEDS: LEVOTHYROXINE SODIUM 50 MCG TABLET PO SCH (06:02)
[2025-07-22 08:34] VITALS: BP 138/69; PULSE 79; RESP 17; TEMP 98; O2SAT 97
[2025-07-22] MEDS: ATORVASTATIN CALCIUM 40 MG TABLET PO SCH (09:10)
[2025-07-22] MEDS: AMIODARONE HCL 200 MG TABLET PO SCH (09:10)
[2025-07-22] MEDS: BUMETANIDE 1 MG TABLET PO SCH (09:10)
[2025-07-22] MEDS: LOSARTAN POTASSIUM 25 MG TABLET PO SCH (09:10)
[2025-07-22 20:00] VITALS: BP 104/77; PULSE 92; RESP 17; TEMP 97.3; O2SAT 100
[2025-07-23 08:10] VITALS: BP 129/81; PULSE 81; RESP 18; TEMP 98.2; O2SAT 97
[2025-07-23] MEDS: SPIRONOLACTONE 25 MG TABLET PO SCH (09:00)
[2025-07-23] MEDS: EMPAGLIFLOZIN 10 MG TABLET PO SCH (09:14)
[2025-07-23 20:07] VITALS: BP 104/68; PULSE 92; RESP 17; TEMP 98.2; O2SAT 97
[2025-07-24 08:24] VITALS: BP 112/82; PULSE 65; RESP 16; TEMP 98.1; O2SAT 97
[2025-07-24] MEDS: DULoxetine HCL 60 MG CAPSULE PO SCH (11:00)
[2025-07-24 20:34] VITALS: BP_SYST 118; BP_SYST 99; BP_DIAS 64; BP_DIAS 68; PULSE 76; PULSE 98; RESP 18; TEMP 98.2; O2SAT 98
[2025-07-25 08:55] LABS: ALCOHOL, BLOOD (SERUM) < 3 mg/dL (0-10)
[2025-07-25 09:40] VITALS: BP 108/81; PULSE 81; RESP 18; TEMP 98; O2SAT 99
[2025-07-25 20:53] VITALS: BP 130/93; PULSE 104; RESP 18; TEMP 97.9; O2SAT 100
[2025-07-25 21:35] VITALS: BP 131/82; PULSE 60; RESP 19; TEMP 98.2; O2SAT 98
[2025-07-26 02:07] LABS: HEPATITIS C AB (EIA) Non Reactive (Non Reactive)
[2025-07-26 05:35] LABS: APPEARANCE,URINE CLEAR (CLEAR); GLUCOSE, URINE (UA) >=1000 mg/dL (NEGATIVE); LEUKOCYTE ESTERASE ,URINE NEGATIVE (NEGATIVE); NITRATE,URINE NEGATIVE (NEGATIVE); OCCULT BLOOD,URINE NEGATIVE (NEGATIVE); PH,URINE DRUG SCREEN 6.0 (5.0-8.0); SPECIFIC GRAVITIY, URINE 1.015 (1.003-1.030)
[2025-07-26 05:40] LABS: ALCOHOL, URINE DRUG SCREEN NEGATIVE (NEGATIVE); AMPHET/METH SCREEN,URINE NEGATIVE (NEGATIVE); BARBITURATE SCREEN, URINE NEGATIVE (NEGATIVE); CANNABINOID SCREEN,URINE NEGATIVE (NEGATIVE); COCAINE SCREEN,URINE POSITIVE (NEGATIVE); METHADONE SCREEN, URINE NEGATIVE (NEGATIVE)
[2025-07-26 05:53] LABS: SQUAMOUS EPITHELIAL CELL,UR Rare /LPF (None Seen)
[2025-07-26 12:54] VITALS: BP 109/69; PULSE 101; RESP 18; TEMP 97.9; O2SAT 97
[2025-07-26 22:22] VITALS: BP 111/72; PULSE 66; RESP 18; TEMP 98; O2SAT 97
[2025-07-27 09:53] VITALS: BP 111/82; PULSE 78; RESP 17; TEMP 98.4; O2SAT 100
[2025-07-27 20:49] VITALS: BP 98/69; PULSE 75; RESP 18; TEMP 97.8; O2SAT 99
[2025-07-28 12:28] VITALS: BP 115/87; PULSE 82; RESP 18; TEMP 98; O2SAT 100
[2025-07-28 21:51] VITALS: BP 107/73; PULSE 89; RESP 18; TEMP 98.2; O2SAT 98
[2025-07-29 09:12] VITALS: BP 105/78; PULSE 74; RESP 18; TEMP 98.2; O2SAT 98
[2025-07-29] MEDS: LATANOPROST 0.005% 2.5 ML OPHTHALMIC SOLUTION OU SCH (09:59)
[2025-07-29 20:10] VITALS: BP 102/85; PULSE 77; RESP 18; TEMP 97.8; O2SAT 100
[2025-07-30 09:02] VITALS: BP 105/81; PULSE 101; RESP 18; TEMP 98; O2SAT 98
[2025-07-30] MEDS ORDERED: EMPA10TA3 PO (12:09)
[2025-07-30] MEDS ORDERED: XALA2.5OS OU (12:09)
[2025-07-30] MEDS ORDERED: LEVO50 PO (12:09)
[2025-07-30] MEDS ORDERED: AMIO200T73 PO (12:09)
[2025-07-30] MEDS ORDERED: LOSA-381 PO (12:09)
[2025-07-30] MEDS ORDERED: OLAN10TA74 PO (12:09)
[2025-07-30] MEDS ORDERED: DULO60CA73 PO (12:09)
[2025-07-30] MEDS ORDERED: BUME1TAB50 PO (12:09)
== END 2025-07-30 13:15 | disposition home or self-care (01) | DRG 750 ==
LOC: B2S 16:00 → 3EI 07-25 20:52
PROVIDERS: ADMIT Psychiatry & Neurology Psychiatry; ATTEND Psychiatry & Neurology Psychiatry
DX: F20.9 Schizophrenia, unspecified (principal); I11.0 Hypertensive heart disease with heart failure; I50.9 Heart failure, unspecified; Z91.148 Patient's other noncompliance with medication regimen for other reason; F12.10 Cannabis abuse, uncomplicated; F32.A Depression, unspecified; Z20.822 Contact with and (suspected) exposure to COVID-19; F41.9 Anxiety disorder, unspecified; F15.10 Other stimulant abuse, uncomplicated; H40.9 Unspecified glaucoma; I25.10 Atherosclerotic heart disease of native coronary artery without angina pectoris; K59.00 Constipation, unspecified; G47.00 Insomnia, unspecified; H54.7 Unspecified visual loss; Z79.899 Other long term (current) drug therapy
CPT/HCPCS: 71046; 80307; 81001; 83036; 86803; 87340; G0480; 36415-L1; 36415-TC